=== PATIENT | male | born 1970 | race Caucasian/White ===

== ENCOUNTER 2020-07-27 10:10 | Emergency (ER) | payer SELFPAY ==
[~2020-07-27] VITALS: Ht 180.3 cm; Wt 71.6 kg
--- NOTE | 2020-07-27 10:31 | NUR ---
pt back to room states he has wounds on his foot. showed the rn a small blister aprox 1cm in diamiter below his right toe.
[2020-07-27 10:36] VITALS: BP 136/89
[2020-07-27] MEDS ORDERED: IBUPROFEN 200 MG TABLET PO ONE (11:00)
--- NOTE | 2020-07-27 11:09 | NUR ---
pt walked out with steady gait. discussed foot hygine. if condition worsens return to the er.
== END 2020-07-27 11:12 | disposition home or self-care (01) ==
LOC: ED 11:10
DX: T69.9XXA Effect of reduced temperature, unspecified, initial encounter (principal); T69.022A Immersion foot, left foot, initial encounter; T69.021A Immersion foot, right foot, initial encounter; M79.672 Pain in left foot; M79.671 Pain in right foot; F17.200 Nicotine dependence, unspecified, uncomplicated
CPT/HCPCS: 99282